=== PATIENT | female | born 1950 | race Caucasian/White ===

== ENCOUNTER 2017-02-21 21:05 | Emergency (ER) | payer MEDICARE, OTHER ==
[~2017-02-21] VITALS: Ht 160 cm; Wt 59.9 kg
[~2017-02-21 21:05] MED LIST: ASPI81TA2 PO; CLOP75TA2 PO; ESOM40CA PO; HYDR-548 PO; METO50TA3 PO; PIOG1TAB2 PO; PRAM0.5T3 PO; ROSU10TA PO; VENL75CA56 PO
[2017-02-21 21:09] VITALS: BP 180/120
[2017-02-21] MEDS ORDERED: OXYMETAZOLINE HCL NASAL SPRAY 30 ML BOTTLE NS ONE (21:33)
[2017-02-21] MEDS: OXYMETAZOLINE HCL NASAL SPRAY 30 ML BOTTLE NS ONE ×2 (21:38→21:39)
--- NOTE | 2017-02-21 22:47 | NUR ---
NASAL PACKING APPLIED BY ERMD. PT ADVISED TO RETURN AFTER 2 DAYS. D/C IN STABLE CONDITION.
== END 2017-02-21 22:54 | disposition home or self-care (01) ==
LOC: ER 21:06
DX: R04.0 Epistaxis (principal); I10 Essential (primary) hypertension; F17.200 Nicotine dependence, unspecified, uncomplicated; I25.10 Atherosclerotic heart disease of native coronary artery without angina pectoris; Z95.5 Presence of coronary angioplasty implant and graft; Z79.82 Long term (current) use of aspirin
CPT/HCPCS: 30901; 99284; A4606; Z7610

== ENCOUNTER 2017-02-23 07:17 | Emergency (ER) | payer MEDICARE, OTHER ==
[~2017-02-23] VITALS: Ht 160 cm; Wt 59.9 kg
[2017-02-23 07:22] VITALS: BP 126/81
[2017-02-23] MEDS ORDERED: OXYMETAZOLINE HCL NASAL SPRAY 30 ML BOTTLE NS ONE (07:34)
[2017-02-23] MEDS ORDERED: PHENYLEPHRINE HCL NASAL SPRAY 15 ML BOTTLE NS ONE (08:00)
== END 2017-02-23 07:48 | disposition home or self-care (01) ==
LOC: ER 07:19
DX: R04.0 Epistaxis (principal); I10 Essential (primary) hypertension; F17.200 Nicotine dependence, unspecified, uncomplicated; Z79.82 Long term (current) use of aspirin
CPT/HCPCS: 99282; A4606; Z7610

== ENCOUNTER 2017-06-14 18:26 | Emergency (ER) | payer MEDICARE, OTHER ==
[~2017-06-14] VITALS: Ht 160 cm; Wt 62.6 kg
--- NOTE | 2017-06-14 18:30 | NUR ---
BIB RA FROM HOME, WORSENING BACK PAIN, S/P TRIP/FALL 2 DAYS AGO. NAD NOTED. PT AAO X4, VSS. RR EVEN AND UNLABORED. PENDING MD EID.
--- NOTE | 2017-06-14 18:45 | NUR ---
DR DAVIES AT BEDSIDE FOR EVAL
[2017-06-14] MEDS ORDERED: DIAZEPAM 10 MG TABLET ONE (19:09)
[2017-06-14] MEDS ORDERED: HYDROMORPHONE 1 MG/1 ML DISP.SYRIN ONE (19:10)
--- NOTE | 2017-06-14 19:24 | NUR ---
PT TRANSPORTED TO RADIOLOGY FOR CT.
[2017-06-14] MEDS ORDERED: HYDROMORPHONE INJ 2 MG/ML DISP.SYRIN IV ONE (19:30)
[2017-06-14] MEDS ORDERED: DIAZEPAM 10 MG TABLET PO ONE (19:30)
--- NOTE | 2017-06-14 19:42 | NUR ---
PT BACK FROM RADIOLOGY. PENDING CT RESULTS.
--- NOTE | 2017-06-14 20:14 | NUR ---
ER MD AT BEDSIDE TALKING TO PT REGARDING CT RESULTS. PENDING DISPOSITION.
--- NOTE | 2017-06-14 20:29 | NUR ---
IV removed. Catheter intact and site benign. Pressure and 4x4 applied to site. No bleeding noted. Patient discharged to home in stable condition. Written and verbal after care instructions given. Patient verbalizes understanding of instruction. ambulatory with a steady gait noted. pt aaox4 no acute distress noted, resp even and unlabored. advice pt not to drive or operate any machinery due to pt was given narcotic medicine.
[2017-06-14 20:30] VITALS: BP 120/61
== END 2017-06-14 20:31 | disposition home or self-care (01) ==
LOC: ER 18:27
DX: M54.5 Low back pain (principal); G89.29 Other chronic pain; I10 Essential (primary) hypertension; M51.24 Other intervertebral disc displacement, thoracic region; M51.26 Other intervertebral disc displacement, lumbar region; F17.200 Nicotine dependence, unspecified, uncomplicated; Z79.82 Long term (current) use of aspirin; W01.0XXA Fall on same level from slipping, tripping and stumbling without subsequent striking against object, initial encounter; Y92.89 Other specified places as the place of occurrence of the external cause; Y93.89 Activity, other specified; Y99.8 Other external cause status
CPT/HCPCS: 72128; 72131; 96374; 99284; A4606; J1170; Z7610

== ENCOUNTER 2017-10-11 08:28 | Emergency (ER) | payer MEDICARE, OTHER ==
[~2017-10-11] VITALS: Ht 162.6 cm; Wt 67.1 kg
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
[2017-10-11] MEDS ORDERED: ONDANSETRON HCL/PF 4 MG/2 ML VIAL ONE (08:49)
[2017-10-11] MEDS ORDERED: HYDROMORPHONE INJ 2 MG/ML DISP.SYRIN ONE (08:57)
[2017-10-11] MEDS ORDERED: ONDANSETRON HCL/PF 4 MG/2 ML VIAL IVP ONE (09:00)
[2017-10-11] MEDS ORDERED: MORPHINE SULFATE INJ 2 MG/ML DISP.SYRIN IV ONE (09:00)
[2017-10-11] MEDS ORDERED: HYDROMORPHONE 1 MG/1 ML DISP.SYRIN IV ONE (09:00)
--- NOTE | 2017-10-11 09:00 | NUR ---
medicated as needed
--- NOTE | 2017-10-11 09:49 | NUR ---
IV removed. Catheter intact and site benign. Pressure and 4x4 applied to site. No bleeding noted.Patient discharged to home in stable condition. Written and verbal after care instructions given. Patient verbalizes understanding of instruction. Instructed not to drive. Patient assisted to waiting room, waiting for uber.
[2017-10-11 09:53] VITALS: BP 129/84
== END 2017-10-11 09:54 | disposition home or self-care (01) ==
LOC: ER 08:32
DX: S20.219A Contusion of unspecified front wall of thorax, initial encounter (principal); S30.1XXA Contusion of abdominal wall, initial encounter; E11.9 Type 2 diabetes mellitus without complications; I10 Essential (primary) hypertension; G89.29 Other chronic pain; M54.40 Lumbago with sciatica, unspecified side; F10.10 Alcohol abuse, uncomplicated; F17.200 Nicotine dependence, unspecified, uncomplicated; I25.10 Atherosclerotic heart disease of native coronary artery without angina pectoris; Z79.82 Long term (current) use of aspirin; Z91.030 Bee allergy status; V89.2XXA Person injured in unspecified motor-vehicle accident, traffic, initial encounter; Y93.89 Activity, other specified; Y92.89 Other specified places as the place of occurrence of the external cause; Y99.8 Other external cause status
CPT/HCPCS: 71010; 93005; 96374; 96375; 99284; A4606; J1170; J2405; Z7610

== ENCOUNTER 2019-01-31 21:23 | Inpatient (IN) | payer MEDICARE, MEDICAID ==
[~2019-01-31] VITALS: Ht 162.6 cm; Wt 68.0 kg
[~2019-01-31 21:23] MED LIST changes: +ASPI-1169 PO; -ASPI81TA2 PO; +CLOP75TA15 PO; -CLOP75TA2 PO; +HYDR-4354 PO; -HYDR-548 PO; +METO50TA16 PO; -METO50TA3 PO; -PIOG1TAB2 PO; +PIOG1TAB7 PO; -ROSU10TA PO; +ROSU10TA2 PO
[2019-01-31] MEDS ORDERED: IV NS 0.9% 1,000 ML BAG IV ONE (21:30)
[2019-01-31 21:48] LABS: BASOPHILS % (AUTO) 0.5 % (0.0-2.0); EOSINOPHILS % (AUTO) 1.6 % (0.0-6.0); HEMATOCRIT 37 % (33-45); HEMOGLOBIN 12.4 g/dL (11.5-14.8); LYMPHOCYTES # (AUTO) 3.3 /CMM (0.8-4.8); LYMPHOCYTES % (AUTO) 36.5 % (20.0-44.0); MEAN CORPUSCULAR HGB CONC 34 g/dl (31.0-36.0); MEAN CORPUSCULAR VOLUME 95 fL (82-100); MONOCYTES # (AUTO) 0.8 /CMM (0.1-1.30); MONOCYTES % (AUTO) 8.8 % (2.0-12.0); NEUTROPHILS # (AUTO) 4.7 /CMM (1.8-8.9); NEUTROPHILS % (AUTO) 52.6 % (43.0-81.0); PLATELET COUNT (AUTO) 261 /CMM (150-450); RED BLOOD CELL COUNT(AUTO) 3.87 MIL/uL (4.0-5.2); WHITE BLOOD COUNT (AUTO) 8.9 K/uL (4.3-11.0)
--- NOTE | 2019-01-31 21:50 | NUR ---
MEMO. C/O "TOOK A BUNCH OF PILLS A SUICIDE ATTEMPT" -SOB -ACUTE DISTRESS. PT ALERT AND RESPONSIVE. +N/V. STATES SHE HAS ATTEMPTED SUICIDE BEFORE. SKIN INTACT. IVF INFUSING AND URINE SENT TO STAT LAB.
[2019-01-31 21:57] LABS: CALCIUM, SERUM 8.9 mg/dL (8.5-10.1); CREATININE 0.7 mg/dL (0.6-1.3); POTASSIUM 3.4 mmol/L (3.5-5.1)
--- NOTE | 2019-01-31 22:01 | NUR ---
MEDICAL RESTRAINTS NOT APPLIED DUE TO PT BEING CALM AND COOPERATIVE. MD ROCHA
[2019-01-31 22:08] LABS: ALBUMIN 3.3 g/dL (3.4-5.0); SALICYLATE 2.9 mg/dL (2.8-20.0); TOTAL PROTEIN, SERUM 6.7 g/dL (6.4-8.2)
[2019-01-31 22:14] LABS: APPEARANCE,URINE Clear (CLEAR); BILIRUBIN,URINE Negative (NEGATIVE); BLOOD, URINE Trace-lysed Ery/uL (NEGATIVE); COLOR,URINE Yellow (YELLOW); KETONES,URINE Negative (NEGATIVE); LEUKOCYTE ESTERASE ,URINE Small (NEGATIVE); NITRITE, URINE Negative (NEGATIVE); PH,URINE 5.5 (5.0-8.0); PROTEIN,URINE Negative (NEGATIVE); UGLUCOSE Negative (NEGATIVE); UROBILINOGEN,URINE 0.2 EU/dL (0.2)
[2019-01-31 22:18] LABS: BILIRUBIN,TOTAL 0.1 mg/dL (0.2-1.0)
--- NOTE | 2019-01-31 22:24 | NUR ---
DR NOGUERA AT BEDSIDE
[2019-01-31 22:40] LABS: BACTERIA,URINE Few /HPF (None Seen); RBC,URINE 0-2 /HPF (0-2); SQUAMOUS EPITHELIAL CELL,UR Few /HPF (None Seen); WBC,URINE 0-2 /HPF (0-3)
--- NOTE | 2019-01-31 23:08 | NUR ---
Patient is resting comfortably in bed with eyes closed. Easily aroused. VSS. IVF STILL INFUSING DUE TO PT NOT KEEPING ARM STRAIGHT
[2019-02-01] MEDS ORDERED: DEXT20TA6 PO (00:34)
[2019-02-01] MEDS ORDERED: METO-357 PO (00:34)
[2019-02-01] MEDS ORDERED: METF-440 PO (00:34)
[2019-02-01] MEDS ORDERED: PIOG30TA10 PO (00:34)
--- NOTE | 2019-02-01 00:46 | NUR ---
REPORT GIVEN FOR CONTINUATION OF CARE.
[2019-02-01] MEDS ORDERED: LIDOCAINE 2% JEL UROJET 10 ML MM ONE (01:00)
--- NOTE | 2019-02-01 01:23 | NUR ---
PT TO [facility] VIA WHEELCHAIR.
[2019-02-01 01:30] VITALS: BP 158/81
[2019-02-01] MEDS ORDERED: MAG HYDROX/AL HYDROX/SIMETH 30 ML UDC PO PRN (01:30)
[2019-02-01] MEDS ORDERED: LORAZEPAM 0.5 MG TABLET PO PRN (01:30)
[2019-02-01] MEDS ORDERED: TEMAZEPAM 7.5 MG CAPSULE PO PRN (01:30)
[2019-02-01] MEDS ORDERED: MAGNESIUM HYDROXIDE 30 ML UDC PO PRN (01:30)
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
[2019-02-01 08:00] VITALS: BP 167/77
--- NOTE | 2019-02-01 08:30 | NUR ---
ms rn received on bed, awake,alert,not in any form of distress, respirations even and unlabored,no sob noted, lungs are clear,abdomen soft,positive bowel sounds,denies pain at this time, will monitor patient's condition.
--- NOTE | 2019-02-01 09:00 | NUR ---
ms rn refusing meds at this time, not unless md ordered nexium for gerd, explained to patient that we do have protonix here, but refused.
[2019-02-01 09:02] LABS: BASOPHILS % (AUTO) 0.5 % (0.0-2.0); EOSINOPHILS % (AUTO) 2.2 % (0.0-6.0); HEMATOCRIT 37 % (33-45); HEMOGLOBIN 12.5 g/dL (11.5-14.8); LYMPHOCYTES # (AUTO) 2.5 /CMM (0.8-4.8); LYMPHOCYTES % (AUTO) 32.2 % (20.0-44.0); MEAN CORPUSCULAR HGB CONC 33 g/dl (31.0-36.0); MEAN CORPUSCULAR VOLUME 94 fL (82-100); MONOCYTES # (AUTO) 0.7 /CMM (0.1-1.30); NEUTROPHILS # (AUTO) 4.4 /CMM (1.8-8.9); NEUTROPHILS % (AUTO) 56.1 % (43.0-81.0); PLATELET COUNT (AUTO) 245 /CMM (150-450); RED BLOOD CELL COUNT(AUTO) 3.95 MIL/uL (4.0-5.2); WHITE BLOOD COUNT (AUTO) 7.9 K/uL (4.3-11.0)
[2019-02-01 09:17] LABS: CREATININE 0.6 mg/dL (0.6-1.3); MAGNESIUM 1.6 mg/dL (1.8-2.4); PHOSPHORUS 3.9 mg/dL (2.5-4.9)
--- NOTE | 2019-02-01 09:20 | NUR ---
ms rn was seen by jamaal villafuerte, talked to him regarding nexium but did not agreed, we don't carry that meds.
[2019-02-01 09:56] LABS: THYROID STIMULATING HORMONE 0.261 uIU/mL (0.358-3.74)
--- NOTE | 2019-02-01 10:00 | NUR ---
ms rn patient refused meds at this time, will try again later.
[2019-02-01] MEDS ORDERED: NICOTINE PATCH (14MG) 14 MG PATCH.TD24 TD PRN (10:14)
[2019-02-01] MEDS ORDERED: POTASSIUM CHLORIDE 20 MEQ TAB.PRT.SR PO ONE (11:30)
[2019-02-01] MEDS ORDERED: MAGNESIUM OXIDE 400 MG TABLET PO ONE (11:30)
[2019-02-01] MEDS: CLOPIDOGREL BISULFATE 75 MG TABLET PO SCH (12:15)
[2019-02-01] MEDS: METFORMIN 500 MG TABLET PO SCH ×2 (12:15→17:34)
[2019-02-01] MEDS: METOPROLOL SUCCINATE 50 MG TAB.SR.24H PO SCH (12:16)
[2019-02-01] MEDS: ASPIRIN 81 MG TAB.CHEW PO SCH (12:16)
--- NOTE | 2019-02-01 14:15 | NUR ---
SW met with pts daughter Sandhya [phone] who wanted to know how many pills pt had taken and stated she wasn't sure if pt actually meant to overdose in an attempt of suicide or wanted to call for attention. Daughter stated pt often times says things to get her children's attention and wanted to speak to the Psychiatrist to inform her of pts erratic behavior at home. Daughter met with Psychiatrist Dr. Hernández and spoke about pts mental health hx.
[2019-02-01 16:00] VITALS: BP_SYST 115; BP_SYST 157; BP_DIAS 77
[2019-02-01] MEDS: PRAMIPEXOLE DI-HCL 0.25 MG TABLET PO SCH (17:34)
[2019-02-01] MEDS: DIVALPROEX SODIUM 125 MG TABLET.DR PO SCH ×2 (17:34→21:12)
[2019-02-01 20:09] VITALS: BP 130/77
[2019-02-01] MEDS: ATORVASTATIN 10 MG TABLET PO SCH (21:12)
[2019-02-01] MEDS: risperiDONE 1 MG TABLET PO SCH (21:12)
[2019-02-02 07:49] LABS: CHOLESTEROL 194 mg/dL (<200); HDL CHOLESTEROL 71 mg/dL (40-60); LDL 109 mg/dL (0-99); TRIGLYCERIDES 152 mg/dL (30-150)
[2019-02-02 08:00] VITALS: BP 151/73
[2019-02-02] MEDS: DIVALPROEX SODIUM 125 MG TABLET.DR PO SCH ×2 (09:00→21:00)
[2019-02-02] MEDS: CLOPIDOGREL BISULFATE 75 MG TABLET PO SCH (09:00)
[2019-02-02] MEDS: ASPIRIN 81 MG TAB.CHEW PO SCH (09:00)
[2019-02-02] MEDS: PIOGLITAZONE HCL 15 MG TABLET PO SCH (09:46)
[2019-02-02] MEDS: METFORMIN 500 MG TABLET PO SCH ×2 (09:47→17:00)
[2019-02-02] MEDS: PRAMIPEXOLE DI-HCL 0.25 MG TABLET PO SCH ×2 (09:47→17:00)
--- NOTE | 2019-02-02 09:50 | NUR ---
INITIAL DISCHARGE PLAN: Pt wishes to return home to [address] [place] [address] [address] [facility] [id number] . SW will help form a safe and proper discharge in collaboration with .
[2019-02-02] MEDS: PANTOPRAZOLE 40 MG TABLET.DR PO SCH (10:09)
[2019-02-02] MEDS: METOPROLOL SUCCINATE 50 MG TAB.SR.24H PO SCH (10:10)
--- NOTE | 2019-02-02 13:21 | NUR ---
RN-CO: CALLED DR MEJIA IF HE CAN TAKE THE PATIENT SINCE PATIENT DOES NOT WANT DR ARRIAGA. DR MEJIA STATED" I DONT LIKE TO TAKE THE PATIENT."
--- NOTE | 2019-02-02 13:43 | NUR ---
RN-CO: CALLED DR EVANS PER PATIENT REQUEST TO TRANSFER CARE TO HIM. DR EVANS STATED " I WILL NOT TAKE THE TRANSFER OF CARE." DR ARRIAGA MADE AWARE.
--- NOTE | 2019-02-02 13:59 | NUR ---
ОЛЕГ received a call from pts daughter Sandhya [phone] requesting information on pts diagnoses. SW read diagnoses to pt daughter and also provided her with medication information. SW provided supportive counseling to daughter and educated her on pts current mental state.
--- NOTE | 2019-02-02 14:57 | NUR ---
GROUP NOTE: Topic: "Goals you have when you're discharged from the hospital and positive coping strategies to use while in the hospital." S: "I want to renew my passport and go to [place] to visit my family and friends. I want to be around my family since my daughter has her own family and she is too busy." O: Pts mood appeared manic with congruent affect. Pt was loud in tone and kept interrupting when other pts were speaking. Pt is from reality and her judgement is poor. A: Pt has not gained awareness of her mental illness and believes she has done nothing wrong and does not belong here. P: Pt will continue milieu treatment and medication stabilization.
--- NOTE | 2019-02-02 18:18 | NUR ---
RN-CO: DR COLON DID NOT ACCEPT THE TRANSFER OF CARE. DR ARRIAGA MADE AWARE.
--- NOTE | 2019-02-02 18:41 | NUR ---
RN-CO: Patient ripped her 14 day hold copy when primary nurse served it to her.
--- NOTE | 2019-02-02 20:16 | NUR ---
GPS RN NOTES PATIENT REFUSED VITAL SIGNS.
--- NOTE | 2019-02-02 21:00 | NUR ---
GPS RN NOTES PATIENT REFUSED HER SCHEDULED MEDS.SHE WANTS NORCO FOR HER BACK PAIN.
[2019-02-02] MEDS: HYDROCODONE/APAP 5/325MG 1 EACH TABLET PO PRN (21:19)
--- NOTE | 2019-02-02 21:19 | NUR ---
GPS RN NOTES C/O BACK PAIN 5/10 ON PAIN SCALE,NORCO 5/325MG,1 TAB PO GIVEN PER PATIENT REQUEST.
[2019-02-02] MEDS: ATORVASTATIN 10 MG TABLET PO SCH (22:00)
[2019-02-02] MEDS: risperiDONE 1 MG TABLET PO SCH (22:00)
[2019-02-03] MEDS: ACETAMINOPHEN 325 MG TABLET PO PRN (04:31)
--- NOTE | 2019-02-03 04:31 | NUR ---
GPS RN NOTES AWAKE/C/O HEADACHE,TYLENOL 650MG PO GIVEN FOR MILD PAIN
[2019-02-03 08:00] VITALS: BP 124/71
[2019-02-03] MEDS: PANTOPRAZOLE 40 MG TABLET.DR PO SCH (08:40)
[2019-02-03] MEDS: PIOGLITAZONE HCL 15 MG TABLET PO SCH (08:40)
[2019-02-03] MEDS: ASPIRIN 81 MG TAB.CHEW PO SCH (08:41)
[2019-02-03] MEDS: DIVALPROEX SODIUM 125 MG TABLET.DR PO SCH ×3 (08:42→20:54)
[2019-02-03] MEDS: METFORMIN 500 MG TABLET PO SCH ×2 (08:42→16:25)
[2019-02-03] MEDS: CLOPIDOGREL BISULFATE 75 MG TABLET PO SCH (08:43)
[2019-02-03] MEDS: PRAMIPEXOLE DI-HCL 0.25 MG TABLET PO SCH ×2 (08:43→16:25)
[2019-02-03] MEDS: METOPROLOL SUCCINATE 50 MG TAB.SR.24H PO SCH (08:44)
[2019-02-03] MEDS: LORAZEPAM 0.5 MG TABLET PO PRN (09:14)
--- NOTE | 2019-02-03 09:49 | NUR ---
ОЛЕГ contacted Dr. Rishi Joyce-Physical medicine & rehabilitation - pain medicine [address] [address], [place] [address] [phone] and spoke with Brook in the front end driver. ОЛЕГ informed her that pt is currently on a hold and has an appointment on this present day for an Epidural injection, ОЛЕГ asked if it was possible for Dr. Joyce to come to the unit and administer the injection as pt stated she has been waiting for this injection for 2 months. Brook stated that Dr. Joyce is able to come to the hospital and administer injection however needed to consult with him regarding his availability. Brook stated that he would return ОЛЕГ's call with an update.
--- NOTE | 2019-02-03 10:31 | NUR ---
ОЛЕГ received a call from Brook, cyber systems administrator at Dr. Rishi Joyce-[facility] - pain medicine [address] [place] [address], [place] [address] [phone] Joyce is not available this week but may be available early next week. ОЛЕГ will contact Brook early next week for availability.
[2019-02-03] MEDS: HYDROCODONE/APAP 5/325MG 1 EACH TABLET PO PRN ×2 (12:25→21:21)
[2019-02-03 14:14] LABS: APPEARANCE,URINE SL CLOUDY (CLEAR); BILIRUBIN,URINE NEGATIVE (NEGATIVE); BLOOD, URINE TRACE-INTA Ery/uL (NEGATIVE); COLOR,URINE YELLOW (YELLOW); KETONES,URINE NEGATIVE (NEGATIVE); LEUKOCYTE ESTERASE ,URINE 1+ (NEGATIVE); NITRITE, URINE NEGATIVE (NEGATIVE); PH,URINE 5.5 (5.0-8.0); PROTEIN,URINE NEGATIVE (NEGATIVE); UGLUCOSE NEGATIVE (NEGATIVE); UROBILINOGEN,URINE 0.2 EU/dL (0.2)
[2019-02-03 14:29] LABS: BACTERIA,URINE Few /HPF (None Seen); RBC,URINE 0-2 /HPF (0-2); SQUAMOUS EPITHELIAL CELL,UR Few /HPF (None Seen); WBC,URINE 21-50 /HPF (0-3)
[2019-02-03 16:00] VITALS: BP 104/70
--- NOTE | 2019-02-03 16:03 | NUR ---
GPS RN NOTE: NOTIFIED DATA DEVELOPER JOSE RAFAEL REGARDING THE RESULT OF URINE WBC = 21-50, URINE BACTERIA = FEW, WITH ORDER OF KEFLEX 500MG PO BID X 7 DAYS NOTED AND CARRIED OUT. WILL COTNINUE TO MONITOR [id number] FOR SAFETY
[2019-02-03] MEDS: CEPHALEXIN MONOHYDRATE 250 MG CAPSULE PO SCH (16:25)
[2019-02-03 20:00] VITALS: BP 136/62
[2019-02-03] MEDS: risperiDONE 1 MG TABLET PO SCH (21:08)
[2019-02-03] MEDS: ATORVASTATIN 10 MG TABLET PO SCH (21:08)
[2019-02-04] MEDS: LORAZEPAM 0.5 MG TABLET PO PRN ×2 (02:40→11:40)
[2019-02-04 08:00] VITALS: BP 142/70
[2019-02-04] MEDS: PANTOPRAZOLE 40 MG TABLET.DR PO SCH (08:47)
[2019-02-04] MEDS: METFORMIN 500 MG TABLET PO SCH ×2 (08:55→16:30)
[2019-02-04] MEDS: PIOGLITAZONE HCL 15 MG TABLET PO SCH (08:55)
[2019-02-04] MEDS: CEPHALEXIN MONOHYDRATE 250 MG CAPSULE PO SCH ×2 (08:55→16:30)
[2019-02-04] MEDS: DIVALPROEX SODIUM 125 MG TABLET.DR PO SCH ×3 (08:55→21:00)
[2019-02-04] MEDS: CLOPIDOGREL BISULFATE 75 MG TABLET PO SCH (08:55)
[2019-02-04] MEDS: METOPROLOL SUCCINATE 50 MG TAB.SR.24H PO SCH (08:56)
[2019-02-04] MEDS: PRAMIPEXOLE DI-HCL 0.25 MG TABLET PO SCH ×2 (08:56→16:30)
[2019-02-04] MEDS: ASPIRIN 81 MG TAB.CHEW PO SCH (08:56)
--- NOTE | 2019-02-04 11:06 | NUR ---
SUPPORT COUNSELING: SW received a call from pts daughter Sandhya [phone] requesting pts psychiatrist be changed due to pt not liking Dr. Hernández because of her ethnicity and due to psychiatrist diagnosing pt with Alcohol Use Disorder and Cannabis Use Disorder. SW explained that pt is able to request a change in psychiatrist via a written formal letter explaining her reason for wanting to change but also informed her that the psychiatrist pt is requesting to be changed to needs to accept pt and agree with wanting to treat pt. Daughter also was upset that the psychiatrist stated pt has a drinking problem and that she never mentioned to the psychiatrist that pt abused alcohol. SW explained that pts toxicology report indicated a high content for ETOH and also informed her that pt reported to psychiatrist that she spoked marijuana. SW then took the opportunity to educate daughter on pts mental illness and also explained how Bipolar Disorder manifested itself and the characteristics associated with the diagnosis. Daughter stated that she did not know how to deal with pt and that pt had never been diagnosed with a mental illness and she always believed pts manic behavior was just part of pts normal behavior. SW explained that manipulation was a major characteristic of Bipolar disorder, daughter stated that pt often times manipulates her and tells her things and does not know whether to believe her or not she stated that she is afraid of confronting pt and often times tipi-toes around pt to prevent pt from becoming manic. SW encouraged daughter to educate herself on Bipolar Disorder and also suggested she attend a support group to help her cope with pts behaviors. Daughter also informed SW that pt has asked her to smuggle in cigarettes to the unit so she can smoke. SW informed her that smoking is not allowed and that if daughter is caught smuggling in contraband she will not be allowed to visit pt. Daughter understood and asked SW to have pts nurse offer pt a Nicotine patch.
--- NOTE | 2019-02-04 11:50 | NUR ---
GPS/RN-NOTES PATIENT REQUESTING ATIVAN STATED" I NEED ATIVAN TO CALM ME DOWN,I'M ANXIOUS". ATIVAN 1MG P.O GIVEN PRN ORDER. WILL CONT. MONITORING FOR SAFETY AND BEHAVIOR.
--- NOTE | 2019-02-04 13:00 | NUR ---
Treatment Planning: SW, psychiatrist, and pts nurse spoke with pt and pt was receptive to treatment. Pt is responding well to Depakote. Pt did not express concern with wanting to change psychiatrist and also Dr. Hernández offered to continue treating pt after discharge as her regular psychiatrist. Pt agreed.
--- NOTE | 2019-02-04 13:40 | NUR ---
ОЛЕГ contacted pts daughter Sandhya [phone] and provided her with an update. ОЛЕГ informed her that pt is taking medication and is responded well to the Zepakote. ОЛЕГ informed her that SW and psychiatrist and pts nurse spoke with pt and pt was receptive to treatment. ОЛЕГ informed her that pt did not express concern with wanting to change psychiatrist and also informed her Dr. Hernández offered to continue treating pt after discharge as her regular psychiatrist and pt agreed. Addendum: 02/04/19 at 1347 by DEVENDRA DENNEY DEPAKOTE
[2019-02-04] MEDS: HYDROCODONE/APAP 5/325MG 1 EACH TABLET PO PRN (15:58)
--- NOTE | 2019-02-04 15:59 | NUR ---
GPS/RN-NOTES PATIENT REQUESTING NORCO FOR LOWER BACK 6/10 PAIN. NORCO 1 TAB. P. O GIVEN PRN ORDER. WILL CONT. MONITORING FOR SAFETY .
[2019-02-04 16:00] VITALS: BP 111/61
[2019-02-04 20:00] VITALS: BP 152/87
[2019-02-04] MEDS: risperiDONE 1 MG TABLET PO SCH (21:33)
[2019-02-04] MEDS: ATORVASTATIN 10 MG TABLET PO SCH (21:39)
--- NOTE | 2019-02-04 21:40 | NUR ---
RN NOTES WHEN SPEAKING WITH Pt EARLIER DURING CHANGE OF SHIFT ROUNDING, Pt STATED THAT SHE DOES NOT WANT TO TAKE ANY OF THE NEW PSYCH MEDS THAT WERE PRESCRIBED HERE AT THE HOSPITAL, Pt STATED THAT SHE ONLY WANTS TO TAKE THE MEDS THAT SHE TAKES AT HOME THAT WERE PRESCRIBED BY HER PCP. Pt AGREED TO TAKE LIPITOR, BUT REFUSED TO TAKE DEPAKOTE & RISPERDAL THAT ARE SCHEDULED FOR TONIGHT. WHEN I ARRIVED TO Pt's ROOM TO ADMINISTER THE LIPITOR, Pt REFUSED TO TAKE IT AT THIS TIME; HAD TO WASTE THE LIPITOR SINCE THE PACKAGE WAS ALREADY OPEN.
[2019-02-04] MEDS: ACETAMINOPHEN 325 MG TABLET PO PRN (21:50)
--- NOTE | 2019-02-04 22:55 | NUR ---
RN NOTES SPOKE WITH DR CRAWFORD ON THE FLOOR. INFORMED HER THAT Pt WAS C/O NAUSEA EARLIER TODAY AND THAT SHE VOMITED X1 DURING THE DAY, BUT THERE WAS NO ZOFRAN PRN PRESCRIBED FOR THE Pt. PER YVETTE SAID OK FOR PO ZOFRAN ODT Q4H PRN. WILL PUT IN ORDER FOR ZOFRAN ODT Q4H PRN. INFORMED DR CRAWFORD THAT Pt IS REQUESTING TO SWITCH HER AM SCHEDULED PROTONIX TO NEXIUM INSTEAD. Pt HAS BROUGHT HER OWN NEXIUM FROM HOME. YVETTE SAID OK FOR THE SWITCH. WILL PUT IN NEW ORDERS.
--- NOTE | 2019-02-05 02:20 | NUR ---
GPS NOTE, PATIENT HAS A COMPLAINT THAT HER PROTONIX 40 MG PO IS CAUSING HER NAUSEA AND STATES, " I HAVE MY OWN NEXIUM IN YOUR PHARMACY I WOULD RATHER HAVE THAT ". SPOKE WITH DR CRAWFORD ON THE GPS FLOOR AND INFORMED HER OF MY FINDINGS. DR CRAWFORD ORDERED TO STOP PROTONIX 40MG PO ACB AND TO GIVE NEXIUM 40MG PO ACB. ALL ORDERS NOTED AND CARRIED OUT WILL CONTINUE TO MONITOR THIS PATIENT.
[2019-02-05] MEDS ORDERED: ONDANSETRON 4 MG TAB.RAPDIS PO PRN (05:00)
[2019-02-05 08:00] VITALS: BP 158/64
[2019-02-05] MEDS: NEXIUM 40 MG PO SCH (08:11)
[2019-02-05] MEDS: PIOGLITAZONE HCL 15 MG TABLET PO SCH (08:20)
[2019-02-05] MEDS: DIVALPROEX SODIUM 125 MG TABLET.DR PO SCH ×3 (08:20→20:34)
[2019-02-05] MEDS: ASPIRIN 81 MG TAB.CHEW PO SCH (08:20)
[2019-02-05] MEDS: METFORMIN 500 MG TABLET PO SCH ×2 (08:21→17:00)
[2019-02-05] MEDS: CLOPIDOGREL BISULFATE 75 MG TABLET PO SCH (08:21)
[2019-02-05] MEDS: CEPHALEXIN MONOHYDRATE 250 MG CAPSULE PO SCH ×2 (08:47→17:00)
[2019-02-05] MEDS: PRAMIPEXOLE DI-HCL 0.25 MG TABLET PO SCH ×2 (08:48→18:10)
[2019-02-05] MEDS: METOPROLOL SUCCINATE 50 MG TAB.SR.24H PO SCH (08:48)
--- NOTE | 2019-02-05 08:48 | NUR ---
GIVEN MUNIRPT. WITH MULTIPLE REQUESTS.
--- NOTE | 2019-02-05 09:00 | NUR ---
JOSEPH BARRY HERE AND PT. SPOKE TO HIM FOR SHORT WHILE.
--- NOTE | 2019-02-05 09:30 | NUR ---
STATES SHE VOMITED AND SOILED TISSUE POINTED TO ON FLOOR.
--- NOTE | 2019-02-05 09:40 | NUR ---
STATES NOT FEELING WELL,REQUESTS BGL CHECK-RN CHECKED AND BLOOD GLUCOSE 116.
[2019-02-05] MEDS: HYDROCODONE/APAP 5/325MG 1 EACH TABLET PO PRN (14:44)
--- NOTE | 2019-02-05 14:45 | NUR ---
GIVEN NORCO FOR BACK PAIN.
[2019-02-05 16:00] VITALS: BP 137/67
--- NOTE | 2019-02-05 16:00 | NUR ---
vomited lrg. amt. clear liquid with some undigested food,had just had norco pain med and eating very little.
--- NOTE | 2019-02-05 18:45 | NUR ---
in bathrm.c/o abd. pain,but does not want any med at this time for pain.
[2019-02-05 20:00] VITALS: BP 148/73
--- NOTE | 2019-02-05 20:00 | NUR ---
RN NOTES RECEIVED PT. AWAKE ON BED, COMPLAINING OF FEELING NAUSEOUS BUT REFUSED ZOFRAN PO.. OFFERED ICE CHIPS AND AGREED TO TAKE IT
[2019-02-05] MEDS: LORAZEPAM 0.5 MG TABLET PO PRN (20:28)
--- NOTE | 2019-02-05 21:00 | NUR ---
RN NOTES PT. STATED THAT "ICE CHIPS HELPED HER A LOT, SHE SAID SHE DOESN'T FEEL NAUSEOUS ANYMORE"
[2019-02-05] MEDS: risperiDONE 1 MG TABLET PO SCH (21:30)
[2019-02-05] MEDS: ATORVASTATIN 10 MG TABLET PO SCH (21:31)
--- NOTE | 2019-02-06 07:25 | NUR ---
GPS RN INITIAL NOTES Report received at bedside. Patient received in bed, awake and responsive. No signs and symptoms of distress. No SOB noted. Denies any pain. Safety measures in place. Will continue to monitor and assess patient.
[2019-02-06 07:40] LABS: BASOPHILS % (AUTO) 0.3 % (0.0-2.0); EOSINOPHILS % (AUTO) 1.6 % (0.0-6.0); HEMATOCRIT 39 % (33-45); HEMOGLOBIN 13.2 g/dL (11.5-14.8); LYMPHOCYTES # (AUTO) 2.5 /CMM (0.8-4.8); MEAN CORPUSCULAR HGB CONC 34 g/dl (31.0-36.0); MEAN CORPUSCULAR VOLUME 95 fL (82-100); MONOCYTES # (AUTO) 0.8 /CMM (0.1-1.30); MONOCYTES % (AUTO) 11.3 % (2.0-12.0); NEUTROPHILS # (AUTO) 3.7 /CMM (1.8-8.9); NEUTROPHILS % (AUTO) 51.8 % (43.0-81.0); PLATELET COUNT (AUTO) 265 /CMM (150-450); RED BLOOD CELL COUNT(AUTO) 4.15 MIL/uL (4.0-5.2); WHITE BLOOD COUNT (AUTO) 7.2 K/uL (4.3-11.0)
[2019-02-06 07:54] LABS: ALBUMIN 3.4 g/dL (3.4-5.0); BILIRUBIN,TOTAL 0.3 mg/dL (0.2-1.0); CALCIUM, SERUM 9.5 mg/dL (8.5-10.1); CREATININE 0.6 mg/dL (0.6-1.3); POTASSIUM 4.4 mmol/L (3.5-5.1); TOTAL PROTEIN, SERUM 7.1 g/dL (6.4-8.2)
[2019-02-06 08:00] VITALS: BP 138/76
[2019-02-06] MEDS: NEXIUM 40 MG PO SCH (08:38)
[2019-02-06] MEDS: PRAMIPEXOLE DI-HCL 0.25 MG TABLET PO SCH ×2 (08:39→17:57)
[2019-02-06] MEDS: METOPROLOL SUCCINATE 50 MG TAB.SR.24H PO SCH (08:39)
[2019-02-06] MEDS: CLOPIDOGREL BISULFATE 75 MG TABLET PO SCH ×3 (08:39→08:45)
[2019-02-06] MEDS: METFORMIN 500 MG TABLET PO SCH ×2 (08:39→17:57)
[2019-02-06] MEDS: CEPHALEXIN MONOHYDRATE 250 MG CAPSULE PO SCH ×2 (08:39→17:57)
[2019-02-06] MEDS: PIOGLITAZONE HCL 15 MG TABLET PO SCH (08:39)
[2019-02-06] MEDS: ASPIRIN 81 MG TAB.CHEW PO SCH (08:40)
[2019-02-06] MEDS: DIVALPROEX SODIUM 125 MG TABLET.DR PO SCH ×3 (08:43→21:17)
--- NOTE | 2019-02-06 08:53 | NUR ---
GPS RN NOTES Patient refused divalproex and plavix. Offered x3 and explained risks vs benefits but continued to refused. Patient stated, "Dr. Acuña (from [facility]) stopped the blood thinner. I've taken it for one year".
[2019-02-06 16:00] VITALS: BP 126/84
--- NOTE | 2019-02-06 18:30 | NUR ---
GPS RN PRN NOTES MOM given to patient with c/o of constipation. No bowel movement noted or reported today. Patient is continent and has BRP
--- NOTE | 2019-02-06 18:32 | NUR ---
GPS RN CLOSING NOTES Patient currently in bed, intermittently sleeping, easily aroused. All due meds given and tolerated. No signs and symptoms of distress/side effects noted. No SOB noted. Kept patient clean, dry and comfortable. Ambulated back and forth from the activity room and bedroom. Paticipated and socialized while in acitivity room. Continuous monitoring for safety and behavior. Safety measures in place. Call caro at bedside. Bed in lowest position with bed alarm on. Will endorse to oncoming shift nurse.
[2019-02-06 20:16] VITALS: BP 121/48
[2019-02-06] MEDS: ATORVASTATIN 10 MG TABLET PO SCH (21:16)
[2019-02-06] MEDS: risperiDONE 1 MG TABLET PO SCH (21:17)
[2019-02-07] MEDS: HYDROCODONE/APAP 5/325MG 1 EACH TABLET PO PRN ×2 (02:18→19:28)
[2019-02-07] MEDS: NEXIUM 40 MG PO SCH (07:30)
[2019-02-07 08:00] VITALS: BP 129/67
[2019-02-07] MEDS: METOPROLOL SUCCINATE 50 MG TAB.SR.24H PO SCH (09:00)
[2019-02-07] MEDS: ASPIRIN 81 MG TAB.CHEW PO SCH (09:44)
[2019-02-07] MEDS: METFORMIN 500 MG TABLET PO SCH ×2 (09:45→17:11)
[2019-02-07] MEDS: PIOGLITAZONE HCL 15 MG TABLET PO SCH (09:45)
[2019-02-07] MEDS: PRAMIPEXOLE DI-HCL 0.25 MG TABLET PO SCH ×2 (09:45→17:11)
[2019-02-07] MEDS: DIVALPROEX SODIUM 125 MG TABLET.DR PO SCH ×3 (09:46→21:05)
[2019-02-07] MEDS: CEPHALEXIN MONOHYDRATE 250 MG CAPSULE PO SCH ×2 (09:46→17:11)
[2019-02-07] MEDS: CLOPIDOGREL BISULFATE 75 MG TABLET PO SCH (09:46)
--- NOTE | 2019-02-07 13:47 | NUR ---
ОЛЕГ contacted pts daughter Sandhya [phone] and provided her with an update. ОЛЕГ informed her pt is discharging tomorrow 02/08/19. Daughter stated she would be able to pick her up at 12:00pm.
[2019-02-07 16:00] VITALS: BP 134/80
[2019-02-07 19:48] VITALS: BP 145/65
[2019-02-07] MEDS: risperiDONE 1 MG TABLET PO SCH (21:05)
[2019-02-07] MEDS: ATORVASTATIN 10 MG TABLET PO SCH (21:05)
[2019-02-08] MEDS: NEXIUM 40 MG PO SCH (07:30)
[2019-02-08 07:57] LABS: BASOPHILS % (AUTO) 0.2 % (0.0-2.0); EOSINOPHILS % (AUTO) 1.4 % (0.0-6.0); HEMATOCRIT 40 % (33-45); HEMOGLOBIN 13.1 g/dL (11.5-14.8); LYMPHOCYTES # (AUTO) 2.2 /CMM (0.8-4.8); LYMPHOCYTES % (AUTO) 27.7 % (20.0-44.0); MEAN CORPUSCULAR HGB CONC 33 g/dl (31.0-36.0); MEAN CORPUSCULAR VOLUME 95 fL (82-100); MONOCYTES # (AUTO) 0.8 /CMM (0.1-1.30); MONOCYTES % (AUTO) 10.5 % (2.0-12.0); NEUTROPHILS # (AUTO) 4.8 /CMM (1.8-8.9); NEUTROPHILS % (AUTO) 60.2 % (43.0-81.0); PLATELET COUNT (AUTO) 255 /CMM (150-450); RED BLOOD CELL COUNT(AUTO) 4.18 MIL/uL (4.0-5.2)
[2019-02-08 08:00] VITALS: BP 130/70
[2019-02-08 08:13] LABS: ALBUMIN 3.5 g/dL (3.4-5.0); BILIRUBIN,TOTAL 0.4 mg/dL (0.2-1.0); CALCIUM, SERUM 9.5 mg/dL (8.5-10.1); CREATININE 0.6 mg/dL (0.6-1.3); POTASSIUM 4.6 mmol/L (3.5-5.1); TOTAL PROTEIN, SERUM 7.2 g/dL (6.4-8.2)
[2019-02-08] MEDS: PRAMIPEXOLE DI-HCL 0.25 MG TABLET PO SCH (08:46)
[2019-02-08] MEDS: ASPIRIN 81 MG TAB.CHEW PO SCH (08:46)
[2019-02-08] MEDS: DIVALPROEX SODIUM 125 MG TABLET.DR PO SCH (08:46)
[2019-02-08] MEDS: METFORMIN 500 MG TABLET PO SCH (08:46)
[2019-02-08] MEDS: CEPHALEXIN MONOHYDRATE 250 MG CAPSULE PO SCH (08:46)
[2019-02-08] MEDS: CLOPIDOGREL BISULFATE 75 MG TABLET PO SCH (08:46)
[2019-02-08 08:47] VITALS: BP 130/70
[2019-02-08] MEDS: PIOGLITAZONE HCL 15 MG TABLET PO SCH (08:47)
[2019-02-08] MEDS: METOPROLOL SUCCINATE 50 MG TAB.SR.24H PO SCH (08:47)
--- NOTE | 2019-02-08 12:14 | NUR ---
DISCHARGE NOTE: Pt will be discharged at 12:30pm home to [address] [facility] [address] [facility] [address]. Pts daughter Sandhya [phone] will be transporting pt home. Pts mood was euthymic with congruent affect. Pt denied suicidal/homicidal ideation and denied visual/auditory hallucinations. Pt was given a referral to continue psychiatric treatment with Dr. Wilma Hernández [address] [facility] [address], [place], [place] [id number] [phone]. Pt was advised by psychiatrist to call and schedule an appointment.Pt will also schedule a follow up appointment with [facility]: Dr. Kye Robbins [address] [address] [phone]. Patient was referred to the [facility] [address] [place] [address] / and was encouraged to present at 9am on Saturday February 09, 2019. Additional resources included [facility] [address] [place] [address] and [facility] [address] [place] [address] . For smoking cessation, patient was referred to the [employer] and [employer] [id number]. Patient was also referred to the Nicotine Anonymous meeting on January at 7:00pm at [address] [place] [address], [address] [address]. The multidisciplinary exitcare form was done, printed, signed, and given to the patient.
--- NOTE | 2019-02-08 12:15 | NUR ---
LEVEL VIAL MARKER NOTE :PATIENT ALERT ,VERBALLY RESPONSIVE ,DENIES SUICIDAL IDEATION ,DENIES HOMICIDAL IDEATION ,DENIES AUDITORY VISUAL HALLUCINATION.ALL DISCHARGE INSTRUCTION GIVEN TO PATIENT AND DAUGHTER ABLE TO VERBALIZE UNDERSTANDING .VS STABLE ,NO C/O PAIN ,ALL BELONGINGS RETURNED TO PATIENT .SEEN BY WITH DISCHARGE ORDER AND HARJINDER [facility] ALL SOURCE INTELLIGENCE ANALYST CALLED BACK WITH DISCHARGE ORDERS .PRESCRIPTION GIVEN AND EXPLAINED TO PATIENT AND DAUGHTER ABLE TO VERBALIZE UNDERSTANDING .PATIENT DISCHARGE WITH DAUGHTER WITH PRIVATE CAR AT 1215.
--- NOTE | 2019-02-22 15:32 | NUR ---
15 DAY SUBSTANCE ABUSE FOLLOW UP: Unable to follow up due to contact number no longer valid.
== END 2019-02-08 12:15 | disposition home or self-care (01) | DRG 880 ==
LOC: ER 21:25 → GPS 02-01 00:26
PROVIDERS: ADMIT Psychiatry & Neurology Psychosomatic Medicine; ATTEND Psychiatry & Neurology Psychosomatic Medicine
DX: F41.9 Anxiety disorder, unspecified (principal); R45.851 Suicidal ideations; N39.0 Urinary tract infection, site not specified; E78.5 Hyperlipidemia, unspecified; E11.9 Type 2 diabetes mellitus without complications; F17.210 Nicotine dependence, cigarettes, uncomplicated; I25.10 Atherosclerotic heart disease of native coronary artery without angina pectoris; F90.9 Attention-deficit hyperactivity disorder, unspecified type; K21.9 Gastro-esophageal reflux disease without esophagitis; G89.29 Other chronic pain; Z95.5 Presence of coronary angioplasty implant and graft; G25.81 Restless legs syndrome; Z86.718 Personal history of other venous thrombosis and embolism; Z79.02 Long term (current) use of antithrombotics/antiplatelets; I10 Essential (primary) hypertension; E87.6 Hypokalemia; E83.42 Hypomagnesemia; F31.9 Bipolar disorder, unspecified; F10.10 Alcohol abuse, uncomplicated; F12.10 Cannabis abuse, uncomplicated; F60.9 Personality disorder, unspecified
CPT/HCPCS: 36415; 71045-TC; 80048-TC; 80053-TC; 80061-TC; 80076-TC; 80164-TC; 80305; 81000-TC; 82565-TC; 82962-TC; 83735-TC; 84100-TC; 84443-TC; 85025-TC; 87081-TC; 87086-TC; G0480; J3490; J7030; Q0162

== ENCOUNTER 2019-12-21 16:04 | Emergency (ER) | payer MEDICARE, OTHER ==
[~2019-12-21] VITALS: Ht 160 cm; Wt 73.5 kg
[~2019-12-21 16:04] MED LIST changes: +DEXT20TA6 PO; +METF-440 PO; +METO-357 PO; -METO50TA16 PO; -PIOG1TAB7 PO; +PIOG30TA10 PO
[2019-12-21 16:11] VITALS: BP 134/71
--- NOTE | 2019-12-21 16:45 | NUR ---
Patient discharged to home in stable condition. Written and verbal after care instructions given. Patient verbalizes understanding of instruction.
== END 2019-12-21 16:46 | disposition home or self-care (01) ==
LOC: ER 16:04
DX: I83.893 Varicose veins of bilateral lower extremities with other complications (principal); E11.9 Type 2 diabetes mellitus without complications; I10 Essential (primary) hypertension; F10.10 Alcohol abuse, uncomplicated; F17.200 Nicotine dependence, unspecified, uncomplicated; Y90.9 Presence of alcohol in blood, level not specified; Z60.2 Problems related to living alone; Z95.5 Presence of coronary angioplasty implant and graft; Z79.899 Other long term (current) drug therapy; Z79.82 Long term (current) use of aspirin; Z91.030 Bee allergy status

== ENCOUNTER 2025-05-08 10:05 | Inpatient (IN) | payer MEDICARE, OTHER ==
[~2025-05-08] VITALS: Ht 160 cm; Wt 60.8 kg
[2025-05-08] MEDS: ASPIRIN 325 MG TABLET PO ONE (10:36)
[2025-05-08] MEDS ORDERED: ASPIRIN 325 MG TABLET ONE (10:36)
[2025-05-08 10:39] LABS: BASOPHILS % (AUTO) 0.6 % (0.0-2.0); EOSINOPHILS # (AUTO) 0.1 K/uL (0.0-0.7); EOSINOPHILS % (AUTO) 1.2 % (0.0-6.0); HEMATOCRIT 40 % (33-45); HEMOGLOBIN 13.2 g/dL (11.5-14.8); LYMPHOCYTES # (AUTO) 1.5 K/uL (0.8-4.8); LYMPHOCYTES % (AUTO) 19.2 % (20.0-44.0); MEAN CORPUSCULAR HEMOGLOBIN 32 PG (26.0-33.0); MEAN CORPUSCULAR HGB CONC 33 g/dl (31.0-36.0); MEAN CORPUSCULAR VOLUME 96 fL (82-100); MONOCYTES # (AUTO) 0.7 K/uL (0.1-1.30); MONOCYTES % (AUTO) 9.5 % (2.0-12.0); NEUTROPHILS # (AUTO) 5.3 K/uL (1.8-8.9); NEUTROPHILS % (AUTO) 69.5 % (43.0-81.0); PLATELET COUNT (AUTO) 288 K/uL (150-450); RED BLOOD CELL COUNT(AUTO) 4.14 MIL/uL (4.0-5.2); RED CELL DISTRIBUTION WIDTH 14.3 % (11.5-15.0); WHITE BLOOD COUNT (AUTO) 7.7 K/uL (4.3-11.0)
[2025-05-08 10:47] LABS: CALCIUM, SERUM 8.8 mg/dL (8.5-10.1); CARBON DIOXIDE 26 mmol/L (21-32); CHLORIDE 101 mmol/L (98-107); CREATININE 0.7 mg/dL (0.6-1.3); GLUCOSE 202 mg/dL (74-106); POTASSIUM 4.2 mmol/L (3.5-5.1); SODIUM SERUM 137 mmol/L (136-145); UREA NITROGEN, BLOOD 18 mg/dL (7-18)
[2025-05-08 10:52] LABS: ALANINE AMINOTRANSFERASE 54 U/L (12-78); ALBUMIN 3.4 g/dL (3.4-5.0); ALKALINE PHOSPHATASE 94 U/L (46-116); ASPARTATE AMINOTRANSFERASE 54 U/L (15-37); BILIRUBIN,DIRECT 0.1 mg/dL (0.0-0.2); BILIRUBIN,TOTAL 0.4 mg/dL (0.2-1.0); LIPASE 31 U/L (16-77)
[2025-05-08 10:57] LABS: ALCOHOL, BLOOD < 3 mg/dL (0-10)
[2025-05-08] MEDS ORDERED: MAGNESIUM PO (11:11)
[2025-05-08] MEDS ORDERED: BUDE10.2 IH (11:11)
[2025-05-08] MEDS ORDERED: RIVA2.5T PO (11:11)
[2025-05-08] MEDS ORDERED: CYAN10006 IM (11:11)
[2025-05-08] MEDS ORDERED: VENL75TA4 PO (11:11)
[2025-05-08] MEDS ORDERED: ROSU40TA23 PO (11:11)
[2025-05-08] MEDS ORDERED: ERGO500093 PO (11:11)
[2025-05-08] MEDS ORDERED: BIOT10005 PO (11:11)
[2025-05-08] MEDS ORDERED: DEXT30TA10 PO (11:11)
[2025-05-08] MEDS ORDERED: Z GUARD REMEDY 4 OZ OINT TP PRN (12:00)
[2025-05-08] MEDS ORDERED: ONDANSETRON HCL/PF 4 MG/2 ML VIAL IVP PRN (12:00)
[2025-05-08] MEDS ORDERED: ACETAMINOPHEN 325 MG TABLET PO PRN (12:00)
[2025-05-08] MEDS ORDERED: MAGNESIUM HYDROXIDE 30 ML UDC PO PRN (12:00)
[2025-05-08] MEDS ORDERED: MAG HYDROX/AL HYDROX/SIMETH 30 ML UDC PO PRN (12:00)
[2025-05-08] MEDS ORDERED: HYDROCODONE/APAP 10/325MG TABLET PO PRN (12:00)
[2025-05-08] MEDS ORDERED: DEXTROSE 50%-WATER 50 ML DISP.SYRIN IV PRN ×2 (12:00→17:00)
[2025-05-08] MEDS ORDERED: ZOLPIDEM TARTRATE 5 MG TABLET PO PRN (12:00)
[2025-05-08] MEDS: BLOOD SUGAR DIAGNOSTIC 1 EACH STRIP IN SCH ×2 (13:00→16:53)
[2025-05-08] MEDS ORDERED: INSULIN REGULAR, HUMAN 100 UNIT/ML 10 ML VIAL ONE (13:04)
[2025-05-08] MEDS: INSULIN REGULAR, HUMAN 100 UNIT/ML 3 ML VIAL SQ PRN ×2 (13:08→16:57)
[2025-05-08 16:00] VITALS: BP 156/80; TEMP 98.2; O2SAT 95
[2025-05-08] MEDS: PRAMIPEXOLE DI-HCL 0.25 MG TABLET PO SCH (16:52)
[2025-05-08] MEDS ORDERED: Medication Not On Formulary EA (Rivaroxaban (Xarelto) 2.5 MG) PO SCH (17:00)
[2025-05-08] MEDS: RIVAROXABAN 10 MG TABLET PO SCH (17:00)
[2025-05-08 20:00] VITALS: BP 165/69; TEMP 98.2; O2SAT 97
[2025-05-08] MEDS: METOPROLOL SUCCINATE 50 MG TAB.SR.24H PO SCH (20:37)
[2025-05-08] MEDS: VENLAFAXINE XR 75 MG CAP.SR.24H PO SCH (20:38)
[2025-05-08] MEDS: ATORVASTATIN 40 MG TABLET PO SCH (22:40)
[2025-05-09] VITALS: BP 141/64; TEMP 98.4; O2SAT 95
[2025-05-09 04:00] VITALS: BP 177/86; TEMP 98.4; O2SAT 97
[2025-05-09] MEDS: hydrALAZINE HCL IV 20 MG VIAL IV PRN (05:08)
[2025-05-09 06:53] LABS: BASOPHILS % (AUTO) 0.4 % (0.0-2.0); EOSINOPHILS # (AUTO) 0.1 K/uL (0.0-0.7); EOSINOPHILS % (AUTO) 1.7 % (0.0-6.0); HEMATOCRIT 39 % (33-45); HEMOGLOBIN 13.2 g/dL (11.5-14.8); LYMPHOCYTES # (AUTO) 2.6 K/uL (0.8-4.8); LYMPHOCYTES % (AUTO) 31.6 % (20.0-44.0); MEAN CORPUSCULAR HEMOGLOBIN 32 PG (26.0-33.0); MEAN CORPUSCULAR HGB CONC 34 g/dl (31.0-36.0); MEAN CORPUSCULAR VOLUME 96 fL (82-100); MONOCYTES # (AUTO) 0.7 K/uL (0.1-1.30); MONOCYTES % (AUTO) 8.9 % (2.0-12.0); NEUTROPHILS # (AUTO) 4.7 K/uL (1.8-8.9); NEUTROPHILS % (AUTO) 57.4 % (43.0-81.0); PLATELET COUNT (AUTO) 265 K/uL (150-450); RED BLOOD CELL COUNT(AUTO) 4.06 MIL/uL (4.0-5.2); RED CELL DISTRIBUTION WIDTH 14.1 % (11.5-15.0); WHITE BLOOD COUNT (AUTO) 8.2 K/uL (4.3-11.0)
[2025-05-09 07:03] LABS: CALCIUM, SERUM 8.8 mg/dL (8.5-10.1); CARBON DIOXIDE 27 mmol/L (21-32); CHLORIDE 101 mmol/L (98-107); CREATININE 0.7 mg/dL (0.6-1.3); GLUCOSE 194 mg/dL (74-106); MAGNESIUM 1.8 mg/dL (1.8-2.4); POTASSIUM 3.8 mmol/L (3.5-5.1); SODIUM SERUM 137 mmol/L (136-145); UREA NITROGEN, BLOOD 24 mg/dL (7-18)
[2025-05-09 07:55] LABS: CHOLESTEROL 210 mg/dL (<200); HDL CHOLESTEROL 77 mg/dL (40-60); LDL 111 mg/dL (0-99); TRIGLYCERIDES 98 mg/dL (30-150)
[2025-05-09 08:00] VITALS: BP 143/67; TEMP 99.5; O2SAT 98
[2025-05-09] MEDS: VALSARTAN 80 MG TABLET PO SCH (08:58)
[2025-05-09] MEDS: PIOGLITAZONE HCL 15 MG TABLET PO SCH (08:58)
[2025-05-09] MEDS: ASPIRIN 81 MG TAB.CHEW PO SCH (08:59)
[2025-05-09] MEDS: PANTOPRAZOLE 40 MG TABLET.DR PO SCH (08:59)
[2025-05-09] MEDS ORDERED: METOPROLOL SUCCINATE 50 MG TAB.SR.24H PO SCH (09:00)
[2025-05-09] MEDS ORDERED: Medication Not On Formulary EA (Amphet Asp/Amphet/D-Amphet (Amphetamine Salts 30 Mg Tab) PO SCH (09:00)
[2025-05-09] MEDS ORDERED: VENLAFAXINE XR 75 MG CAP.SR.24H PO SCH (09:00)
[2025-05-09] MEDS ORDERED: ERGOCALCIFEROL (VITAMIN D 2) 50,000 UNIT CAPSULE PO SCH (09:00)
[2025-05-09 12:00] VITALS: BP 122/69; TEMP 98.8; O2SAT 95
[2025-05-09] MEDS ORDERED: VALS160T2 PO (13:03)
[2025-05-09] MEDS ORDERED: ALBUTEROL FS 2.5 MG/3 ML VIAL.NEB NEB SCH (13:30)
[2025-05-09] MEDS ORDERED: BUDESONIDE RESPULE INH 0.5 MG/2 ML AMPUL.NEB NEB SCH (17:00)
[2025-05-10] MEDS ORDERED: ERGOCALCIFEROL (VITAMIN D 2) 50,000 UNIT CAPSULE PO SCH (09:00)
== END 2025-05-09 14:22 | disposition home or self-care (01) | DRG 303 ==
LOC: ER 10:10 → TELE 12:28 → TELE1 13:17
PROVIDERS: ADMIT Nurse Practitioner Acute Care; ATTEND Nurse Practitioner Acute Care
DX: I25.10 Atherosclerotic heart disease of native coronary artery without angina pectoris (principal); I10 Essential (primary) hypertension; J44.9 Chronic obstructive pulmonary disease, unspecified; E11.9 Type 2 diabetes mellitus without complications; E78.5 Hyperlipidemia, unspecified; G25.81 Restless legs syndrome; F17.210 Nicotine dependence, cigarettes, uncomplicated; Z79.01 Long term (current) use of anticoagulants; Z79.84 Long term (current) use of oral hypoglycemic drugs; Z79.82 Long term (current) use of aspirin; Z95.5 Presence of coronary angioplasty implant and graft; G89.29 Other chronic pain; Z71.6 Tobacco abuse counseling
CPT/HCPCS: 36415; 71045-TC; 80048-TC; 80061-TC; 80076-TC; 82962-TC; 83690-TC; 83735-TC; 84100-TC; 84484-TC; 85025-TC; 93307-TC; 97110-TC; 97116-TC; 97530-TC; G0378; G0480; J0360; J1815

== ENCOUNTER 2025-10-05 14:57 | Inpatient (IN) | payer MEDICARE, OTHER ==
[~2025-10-05] VITALS: Ht 160 cm; Wt 59.4 kg
[~2025-10-05 14:57] MED LIST changes: +BIOT10005 PO; +BUDE10.2 IH; -CLOP75TA15 PO; +CYAN10006 IM; -DEXT20TA6 PO; +DEXT30TA10 PO; +ERGO500093 PO; +MAGNESIUM PO; +RIVA2.5T PO; -ROSU10TA2 PO; +ROSU40TA23 PO; +VALS160T2 PO; -VENL75CA56 PO; +VENL75TA4 PO
[2025-10-05 15:39] LABS: ABG BASE EXCESS -2.3 mmol/L (-2.0-3.0); ABG OXYGEN SATURATION 99.4 % (94.0-98.0); ABG PCO2 36.4 mmHg (32.0-45.0); ABG PH 7.399 (7.350-7.450); ABG PO2 275.2 mmHg (83.0-108.0); ABG TOTAL HEMOGLOBIN 12.9 G/dL (12.0-16.0); FRACTIONATED INSPIRED OXYGEN 100.0 %; SITE, ABG RIGHT RADIAL
[2025-10-05 15:54] LABS: PLATELET COUNT (AUTO) 266 K/uL (150-450); RED BLOOD CELL COUNT(AUTO) 3.84 MIL/uL (4.0-5.2); RED CELL DISTRIBUTION WIDTH 13.2 % (11.5-15.0); WHITE BLOOD COUNT (AUTO) 9.2 K/uL (4.3-11.0)
[2025-10-05 16:02] LABS: CALCIUM, SERUM 8.8 mg/dL (8.5-10.1); CREATININE 0.6 mg/dL (0.6-1.3); SODIUM SERUM 134 mmol/L (136-145); UREA NITROGEN, BLOOD 12 mg/dL (7-18)
[2025-10-05 16:06] LABS: INR 1.01 (0.91-1.10)
[2025-10-05] MEDS ORDERED: LOSA50TA39 PO (16:06)
[2025-10-05] MEDS ORDERED: MAGN250T10 PO (16:06)
[2025-10-05] MEDS ORDERED: CALC-17 PO (16:06)
[2025-10-05] MEDS ORDERED: SEMA0.25 SQ (16:06)
[2025-10-05] MEDS ORDERED: ASCO100031 PO (16:06)
[2025-10-05] MEDS ORDERED: POTASSIUM PO (16:06)
[2025-10-05] MEDS ORDERED: EZET10TA32 PO (16:06)
[2025-10-05] MEDS ORDERED: IBUP-1490 PO (16:06)
[2025-10-05 16:14] LABS: ASPARTATE AMINOTRANSFERASE 29 U/L (15-37); NT-PRO BNP 53 pg/mL (0-125); TOTAL PROTEIN, SERUM 6.6 g/dL (6.4-8.2)
[2025-10-05] MEDS ORDERED: FUROSEMIDE 40 MG/4 ML VIAL ONE (16:35)
[2025-10-05] MEDS ORDERED: Medication Not On Formulary EA (Rivaroxaban (Xarelto) 2.5 MG) PO SCH (17:00)
[2025-10-05] MEDS ORDERED: Z GUARD REMEDY 4 OZ OINT TP PRN (17:00)
[2025-10-05] MEDS ORDERED: ZOLPIDEM TARTRATE 5 MG TABLET PO PRN (17:00)
[2025-10-05] MEDS: FUROSEMIDE 40 MG/4 ML VIAL IV ONE (17:00)
[2025-10-05] MEDS ORDERED: ONDANSETRON HCL/PF 4 MG/2 ML VIAL IVP PRN (17:00)
[2025-10-05] MEDS ORDERED: MAGNESIUM HYDROXIDE 30 ML UDC PO PRN (17:00)
[2025-10-05] MEDS ORDERED: MAG HYDROX/AL HYDROX/SIMETH 30 ML UDC PO PRN (17:00)
[2025-10-05] MEDS ORDERED: ACETAMINOPHEN 325 MG TABLET PO PRN (17:00)
[2025-10-05] MEDS: CEFTRIAXONE 1 G in IV D5W 50 ML IV SCH (17:30)
[2025-10-05] MEDS: PRAMIPEXOLE DI-HCL 0.25 MG TABLET PO SCH (18:00)
[2025-10-05] MEDS ORDERED: CEFTRIAXONE 1 G in IV D5W 50 ML IV ONE (18:00)
[2025-10-05 18:09] LABS: LACTIC ACID 2.0 mmol/L (0.4-2.0)
[2025-10-05] MEDS: AZITHROMYCIN 500 MG in IV D5W 250 ML IV ONE (18:45)
[2025-10-05] MEDS ORDERED: DEXTROSE 50%-WATER 50 ML DISP.SYRIN IV PRN (19:00)
[2025-10-05] MEDS ORDERED: INSULIN REGULAR, HUMAN 100 UNIT/ML 3 ML VIAL SQ PRN (19:00)
[2025-10-05 19:05] VITALS: BP 128/76; TEMP 98.3; O2SAT 98
[2025-10-05] MEDS: ALBUTEROL FS 2.5 MG/0.5 ML VIAL.NEB NEB SCH (19:30)
[2025-10-05] MEDS: IPRATROPIUM NEB FS 0.5 MG/2.5 ML AMPUL.NEB NEB SCH (19:30)
[2025-10-05] MEDS ORDERED: AMOX-430 PO (19:31)
[2025-10-05] MEDS ORDERED: AZIT250T13 PO (19:31)
[2025-10-05] MEDS ORDERED: FUROSEMIDE 40 MG/4 ML VIAL IV ONE (21:00)
[2025-10-05] MEDS ORDERED: DOXYCYCLINE 100 MG in IV D5W 100 ML IV SCH (21:00)
[2025-10-05] MEDS ORDERED: BLOOD SUGAR DIAGNOSTIC 1 EACH STRIP IN SCH (22:00)
[2025-10-05] MEDS ORDERED: ATORVASTATIN 40 MG TABLET PO SCH (22:00)
[2025-10-06] MEDS ORDERED: LOSARTAN POTASSIUM 50 MG TABLET PO SCH (09:00)
[2025-10-06] MEDS ORDERED: FLUTICASONE/VILANTEROL 1 EACH BLST.W.DEV IH SCH (09:00)
[2025-10-06] MEDS ORDERED: VENLAFAXINE 25 MG TABLET PO SCH (09:00)
[2025-10-06] MEDS ORDERED: EZETIMIBE 10 MG TABLET PO SCH (09:00)
[2025-10-06] MEDS ORDERED: METOPROLOL SUCCINATE 50 MG TAB.SR.24H PO SCH (09:00)
[2025-10-06] MEDS ORDERED: PANTOPRAZOLE 40 MG TABLET.DR PO SCH (09:00)
[2025-10-06] MEDS ORDERED: ASCORBIC ACID 500 MG TABLET PO SCH (09:00)
[2025-10-06] MEDS ORDERED: CALCIUM CARB 250MG /VITAMIN D 1 UDTAB PO SCH (09:00)
[2025-10-06] MEDS ORDERED: ASPIRIN 81 MG TAB.CHEW PO SCH (09:00)
[2025-10-10] MEDS ORDERED: CYANOCOBALAMIN 1,000 MCG/ML VIAL IM SCH (09:00)
[2025-10-11] MEDS ORDERED: ERGOCALCIFEROL (VITAMIN D 2) 50,000 UNIT CAPSULE PO SCH (09:00)
== END 2025-10-05 20:04 | disposition left against medical advice (07) | DRG 177 ==
LOC: ER 15:35 → TELE1 17:32
PROVIDERS: ADMIT Nurse Practitioner Acute Care; ATTEND Nurse Practitioner Acute Care
PROC: 5A09357 Assistance with Respiratory Ventilation, Less than 24 Consecutive Hours, Continuous Positive Airway Pressure (ICD-10-PCS; principal; 2025-10-05)
DX: J15.69 Pneumonia due to other Gram-negative bacteria (principal); J96.01 Acute respiratory failure with hypoxia; I50.9 Heart failure, unspecified; Z79.01 Long term (current) use of anticoagulants; J44.1 Chronic obstructive pulmonary disease with (acute) exacerbation; I11.0 Hypertensive heart disease with heart failure; E11.9 Type 2 diabetes mellitus without complications; G25.81 Restless legs syndrome; E78.5 Hyperlipidemia, unspecified; I25.10 Atherosclerotic heart disease of native coronary artery without angina pectoris; Z71.6 Tobacco abuse counseling; Z86.718 Personal history of other venous thrombosis and embolism; Z79.82 Long term (current) use of aspirin; Z95.5 Presence of coronary angioplasty implant and graft; F17.210 Nicotine dependence, cigarettes, uncomplicated; Z79.85 Long-term (current) use of injectable non-insulin antidiabetic drugs
CPT/HCPCS: 36415; 36600; 71045-TC; 80048-TC; 80076-TC; 82803-TC; 83605-TC; 83880; 84484-TC; 85025-TC; 85730-TC; 87040-TC; G0378; J0456; J0696; J1815; J1938; J3490; J7060